=== PATIENT | female | born 1975 | race Caucasian/White ===

== ENCOUNTER 2021-08-25 14:23 | Emergency (ER) | payer MEDICAID ==
[~2021-08-25] VITALS: Ht 172.7 cm; Wt 84.8 kg
--- NOTE | 2021-08-25 14:38 | NUR ---
SUMANTH RA FROM WORK,GLF,C/O LEFT ELBOW,NECK AND SHOULDER PAIN. TO ER BED 11, HOOKED TO MONITOR, CHANGED TO HOSP GOWN, WARM BLANKET PROVIDED. AWAITING MD VARGHESE
--- NOTE | 2021-08-25 15:19 | NUR ---
DR EM AT BEDSIDE
[2021-08-25] MEDS ORDERED: ACETAMINOPHEN ES 500 MG TABLET PO ONE (15:30)
[2021-08-25] MEDS ORDERED: ACETAMINOPHEN ES 500 MG TABLET ONE (15:38)
[2021-08-25] MEDS ORDERED: IBUP-1957 PO (16:13)
[2021-08-25] MEDS ORDERED: CYCL5TAB PO (16:13)
[2021-08-25 17:00] VITALS: BP 127/68
--- NOTE | 2021-08-25 17:00 | NUR ---
Patient discharged to home in stable condition. Written and verbal after care instructions given. Patient verbalizes understanding of instruction.
== END 2021-08-25 17:00 | disposition home or self-care (01) ==
LOC: ER 14:25
DX: R55 Syncope and collapse (principal); M54.2 Cervicalgia; Z60.2 Problems related to living alone; Z79.1 Long term (current) use of non-steroidal anti-inflammatories (NSAID); Z79.899 Other long term (current) drug therapy
CPT/HCPCS: 70450-TC; 82962-TC